=== PATIENT | female | born 1950 | race Two or more races ===

== ENCOUNTER 2018-12-08 14:20 | Inpatient (IN) | payer OTHER ==
[~2018-12-08] VITALS: Ht 157.5 cm; Wt 118.4 kg
[2018-12-08] MEDS ORDERED: [UNRECOGNIZED DRUG - OTHER] (14:56)
[2018-12-08] MEDS ORDERED: LANTUS (14:57)
[2018-12-08] MEDS ORDERED: COZAAR50 MG PO (14:57)
[2018-12-08] MEDS ORDERED: NORVASC PO (14:57)
[2018-12-08] MEDS ORDERED: TRETAL PO (14:58)
[2018-12-08] MEDS ORDERED: NEURONTIN800 MG PO (14:58)
[2018-12-08] MEDS ORDERED: ZOCOR40 MG PO (14:58)
[2018-12-08] MEDS ORDERED: PRILOSEC PO (14:59)
[2018-12-15] MEDS ORDERED: OMEPRAZOLE40 MG PO (14:11)
[2018-12-15] MEDS ORDERED: PENTOXIFYLLINE400 MG PO (14:12)
[2018-12-15] MEDS ORDERED: NORVASC5 MG PO (14:12)
[2018-12-16] MEDS ORDERED: KETO10TA2 PO (14:32)
[2018-12-16] MEDS ORDERED: TRAM1TAB98 PO (14:32)
[2018-12-16] MEDS ORDERED: PROTONIX40 MG PO (14:33)
== END 2018-12-16 15:15 | disposition home or self-care (01) | DRG 330 ==
LOC: SURH 12-13 09:43 → O/R 12-13 09:43 → SURH 12-13 14:19
PROVIDERS: ADMIT Surgery
PROC: 07TC4ZZ Resection of Pelvis Lymphatic, Percutaneous Endoscopic Approach (ICD-10-PCS; 2018-12-13)
PROC: 0WQF4ZZ Repair Abdominal Wall, Percutaneous Endoscopic Approach (ICD-10-PCS; 2018-12-13)
PROC: 4A12X4Z Monitoring of Cardiac Electrical Activity, External Approach (ICD-10-PCS; 2018-12-13)
PROC: 0DTF4ZZ Resection of Right Large Intestine, Percutaneous Endoscopic Approach (ICD-10-PCS; principal; 2018-12-13 17:30)
PROC: 5A09357 Assistance with Respiratory Ventilation, Less than 24 Consecutive Hours, Continuous Positive Airway Pressure (ICD-10-PCS; 2018-12-14)
DX: C18.2 Malignant neoplasm of ascending colon (principal); D62 Acute posthemorrhagic anemia; K43.2 Incisional hernia without obstruction or gangrene; K66.0 Peritoneal adhesions (postprocedural) (postinfection); R09.02 Hypoxemia; E11.40 Type 2 diabetes mellitus with diabetic neuropathy, unspecified; I13.10 Hypertensive heart and chronic kidney disease without heart failure, with stage 1 through stage 4 chronic kidney disease, or unspecified chronic kidney disease; N18.3 Chronic kidney disease, stage 3 (moderate); J45.20 Mild intermittent asthma, uncomplicated; E78.49 Other hyperlipidemia; G47.33 Obstructive sleep apnea (adult) (pediatric); E66.01 Morbid (severe) obesity due to excess calories